=== PATIENT | male | born 1980 | race Two or more races ===

== ENCOUNTER 2017-12-26 09:40 | Emergency (ER) | payer MEDICAID ==
[~2017-12-26] VITALS: Ht 180.3 cm; Wt 102.0 kg
[2017-12-26] MEDS ORDERED: LIDOcaine 1.5% w/epinephrine 1:200,000 5ml ampul IJ ONE (10:30)
[2017-12-26] MEDS ORDERED: TETanus/Pertussis (Acell)/Diphther VAC/PF (Tdap-Adult) 0.5ml syringe IM ONE (10:30)
[2017-12-26 11:10] VITALS: BP 118/70
== END 2017-12-26 11:12 | disposition home or self-care (01) ==
LOC: ER 09:40
DX: S81.011A Laceration without foreign body, right knee, initial encounter (principal); Z98.890 Other specified postprocedural states; Z60.2 Problems related to living alone; W45.8XXA Other foreign body or object entering through skin, initial encounter; Y93.89 Activity, other specified; Y92.89 Other specified places as the place of occurrence of the external cause; Y99.8 Other external cause status
CPT/HCPCS: 12002; 90471; 90715; 99283; A6255; A6449; J3490

== ENCOUNTER 2019-01-21 13:11 | Emergency (ER) | payer MEDICAID ==
[~2019-01-21] VITALS: Ht 180.3 cm; Wt 100.0 kg
[2019-01-21] MEDS ORDERED: ketorolac trometh inj. 60 MG/2 ML VIAL IM ONE (14:35)
--- NOTE | 2019-01-21 14:50 | NUR ---
[employer] orthotist at bedside applying splint
[2019-01-21 15:03] VITALS: BP 130/90
[2019-01-21] MEDS ORDERED: CEPH500C5 PO (15:08)
[2019-01-21] MEDS ORDERED: IBUP-1986 PO (15:09)
[2019-01-21] MEDS ORDERED: cephalexin 250mg capsule PO ONE (15:10)
== END 2019-01-21 15:18 | disposition home or self-care (01) ==
LOC: ER 13:12
DX: S82.832A Other fracture of upper and lower end of left fibula, initial encounter for closed fracture (principal); S91.312A Laceration without foreign body, left foot, initial encounter; F10.99 Alcohol use, unspecified with unspecified alcohol-induced disorder; Z98.890 Other specified postprocedural states; Z60.2 Problems related to living alone; Z79.899 Other long term (current) drug therapy; V09.9XXA Pedestrian injured in unspecified transport accident, initial encounter; Y93.89 Activity, other specified; Y92.89 Other specified places as the place of occurrence of the external cause; Y99.8 Other external cause status; Y90.9 Presence of alcohol in blood, level not specified
CPT/HCPCS: 29515; 73630; 96372; 99283; J1885

== ENCOUNTER 2019-02-06 12:00 | Outpatient (CLI) | payer MEDICAID ==
[~2019-02-06 12:00] MED LIST: CEPH500C5 PO; IBUP-1986 PO
== END 2019-02-06 12:55 | disposition home or self-care (01) ==
LOC: ORTHO 12:00
PROVIDERS: ATTEND Orthopaedic Surgery
DX: S82.832D Other fracture of upper and lower end of left fibula, subsequent encounter for closed fracture with routine healing (principal); X58.XXXD Exposure to other specified factors, subsequent encounter
CPT/HCPCS: 73630; G0463

== ENCOUNTER 2019-03-04 15:23 | Outpatient (CLI) | payer MEDICAID | END 2019-03-04 16:10 | disposition home or self-care (01) | LOC: ORTHO 15:23 | PROVIDERS: ATTEND Orthopaedic Surgery | DX: S82.62XD Displaced fracture of lateral malleolus of left fibula, subsequent encounter for closed fracture with routine healing (principal) | CPT/HCPCS: 73610; G0463 ==

== ENCOUNTER 2019-04-01 14:50 | Outpatient (CLI) | payer MEDICAID | END 2019-04-01 16:30 | disposition home or self-care (01) | LOC: ORTHO 14:50 | PROVIDERS: ATTEND Orthopaedic Surgery | DX: S82.62XD Displaced fracture of lateral malleolus of left fibula, subsequent encounter for closed fracture with routine healing (principal); X58.XXXD Exposure to other specified factors, subsequent encounter | CPT/HCPCS: 73610; G0463 ==